=== PATIENT | female | born 1995 | race Caucasian/White ===

== ENCOUNTER 2020-05-25 12:59 | Inpatient (IN) | payer MEDICAID, SELFPAY ==
[2020-05-25] MEDS ORDERED: Lidocaine 1% (PF) 30 ML VIAL ONE (13:15)
[2020-05-25] MEDS ORDERED: NS w/ Oxytocin 30 units 500 ML ONE (13:22)
[2020-05-25] MEDS ORDERED: Measles/Mumps/Rubella 10 MCG/0.5 ML VIAL SC ONE (13:34)
[2020-05-25] MEDS ORDERED: Milk Of Magnesia 30 ML UDCUP PO PRN (13:34)
[2020-05-25] MEDS ORDERED: Varicella virus, LIVE 0.5 ML VIAL SC ONE (13:34)
[2020-05-25] MEDS ORDERED: Promethazine HCl 25 MG/ML VIAL IM PRN (13:34)
[2020-05-25] MEDS ORDERED: hydrALAZINE 20 MG/ML VIAL SLOW IVP PRN ×2 (13:34)
[2020-05-25] MEDS ORDERED: Ondansetron PF 4 MG/2 ML Vial IVP PRN (13:34)
[2020-05-25] MEDS ORDERED: Bisacodyl 10 MG SUPP PR PRN (13:34)
[2020-05-25] MEDS ORDERED: Adacel (T-DAP) 0.5 ML SYRINGE IM ONE (13:34)
[2020-05-25] MEDS ORDERED: Butorphanol Tartrate 1 MG/ML VIAL SLOW IVP PRN (13:34)
[2020-05-25] MEDS ORDERED: Acetaminophen/Codeine 30-300mg Tablet PO PRN ×2 (13:34)
[2020-05-25] MEDS ORDERED: NS w/ Oxytocin 30 units 500 ML IV SCH (13:45)
[2020-05-25 14:26] VITALS: BMI 25.8
[2020-05-25 14:49] LABS: Mean Corpuscular HGB CONC 32.7 g/dL (32.0-36.0); Mean Corpuscular Hemoglobin 28.3 pg (27.0-33.0); Mean Corpuscular Volume 86.4 fl (81.6-98.3); Mean Platelet Volume 9.8 fl (7.4-10.4); Platelet Count 348 10x3/uL (150-450); RBC Distribution Width 12.7 % (11.5-14.5); Red Blood Cell (RBC) Count 3.89 10x6/uL (3.90-5.03)
[2020-05-25 15:12] LABS: Amphetamine Not Detected (NotDetected); Barbiturates Screen Not Detected (NotDetected); Benzodiazepine Screen Detected (NotDetected); Cocaine Metabolite Screen Detected (NotDetected); Methadone Not Detected (NotDetected); Methamphetamine Not Detected (NotDetected); Opiate Screen Not Detected (NotDetected); Oxycodone Screen Not Detected (NotDetected); Phencyclidine (PCP) Not Detected (NotDetected); THC/Cannabinoid Screen Detected (NotDetected); Tricyclic Screen Not Detected (NotDetected)
[2020-05-25 15:37] LABS: Hep B Surf Ag Non-Reactive S/CO (NonReactive); Syphilis Antibody Nonreactive (Nonreactive); Syphilis Antibody Index 0.02 S/CO (<1.00 Non-Reactive)
[2020-05-25 17:58] LABS: HBSAg Index 0.15 S/CO (0-0.99)
[2020-05-25] MEDS: BUPRENORPHINE 8MG TAB SL SCH (18:24)
[2020-05-25] MEDS: Ibuprofen 800 MG TAB PO SCH ×2 (19:20→21:14)
[2020-05-25] MEDS: ALPRAZolam 0.25 MG TAB PO SCH (21:14)
[2020-05-25] MEDS: Docusate Calcium (SURFAK) 240 MG CAP PO SCH (21:14)
[2020-05-26] MEDS: Ibuprofen 800 MG TAB PO SCH ×3 (06:12→21:25)
[2020-05-26] MEDS: BUPRENORPHINE 8MG TAB SL SCH ×2 (08:00→18:52)
[2020-05-26] MEDS: ALPRAZolam 0.25 MG TAB PO SCH ×2 (08:00→21:26)
[2020-05-26] MEDS: Docusate Calcium (SURFAK) 240 MG CAP PO SCH ×2 (08:00→21:25)
[2020-05-26] MEDS ORDERED: ALPRAZolam 0.25 MG TAB PO SCH (08:15)
[2020-05-26] MEDS: Ferrous Sulfate 325 MG TAB PO SCH ×3 (09:28→21:31)
[2020-05-26 15:55] LABS: SARS-CoV-2 PCR by NAA Not Detected (NotDetected)
[2020-05-27] MEDS: Ibuprofen 800 MG TAB PO SCH ×2 (06:21→13:53)
[2020-05-27] MEDS: BUPRENORPHINE 8MG TAB SL SCH (06:22)
[2020-05-27 07:52] VITALS: BP 113/68; TEMP 98.9
[2020-05-27 08:09] LABS: HIV (1/2) Antibody/Antigen Non-Reactive (NonReactive); HIV 1/2 INDEX 0.08 S/CO (<1.00)
[2020-05-27] MEDS: Ferrous Sulfate 325 MG TAB PO SCH (08:37)
[2020-05-27] MEDS: ALPRAZolam 0.25 MG TAB PO SCH ×2 (09:00→16:30)
[2020-05-27] MEDS: Docusate Calcium (SURFAK) 240 MG CAP PO SCH (15:36)
== END 2020-05-27 18:01 | disposition home or self-care (01) | DRG 769 ==
LOC: CSHLD 12:59 → EEVIPCON 12:59 → CSHLD 13:29 → CSHPP 18:38
PROVIDERS: ADMIT Obstetrics & Gynecology; ATTEND Obstetrics & Gynecology
PROC: 0KQM0ZZ Repair Perineum Muscle, Open Approach (ICD-10-PCS; principal; 2020-05-25)
DX: O70.1 Second degree perineal laceration during delivery (principal); O99.325 Drug use complicating the puerperium; F11.20 Opioid dependence, uncomplicated; Z20.822 Contact with and (suspected) exposure to COVID-19; O99.345 Other mental disorders complicating the puerperium; F41.9 Anxiety disorder, unspecified
CPT/HCPCS: 36415; 51701; 80306; 85027; 86762; 86780; 86850; 86900; 86901; 87340; 87389; 87635; 88307; 99285; J2405; U0003; U0005